=== PATIENT | male | born 1950 | race Caucasian/White ===

== ENCOUNTER 2020-11-24 12:54 | Outpatient (REF) | payer MEDICARE, SELFPAY ==
--- NOTE | 2020-11-24 16:20 | MHC.AU.AHA ---
Adult Audiological Evaluation Date of Visit: 11/24/20 Reason for Appointment: Audiological evaluation to monitor the status of Mr. Rodgers's hearing loss. He has a history of bilateral, high-frequency, sensorineural hearing loss and hearing aid use. He denies any significant changes to his hearing or medical history. [place] [facility] [place] Normal hearing from 250-2000 Hz, sloping to a mild to moderate sensorineural hearing loss from 8301-7401 Hz bilaterally. Ear History: Bothersome Tinnitus/Ringing/Noises in Ears: Both Ears Medical History: Medical History: Unremarkable Medical History Hearing Instrument History- Right Ear: Cpa Tax: Complete Network Technology Model: [employer]90-M DevonWayE Serial Number: [id number] Battery Size: 312 Repair Warranty: 01/22/2019 Loss and Damage Warranty: 01/22/2019 Dispensed By: [facility] Date of Fittin11/16/2015 Hearing Instrument History- Left Ear: Cpa Tax: Complete Network Technology Model: [employer]90-M DevonWayE Serial Number: [id number] Battery Size: 312 Warranty: 01/22/2019 Loss and Damage Warranty: 01/22/2019 Dispensed By: [facility] Date of Fittin11/16/2015 Otoscopy: Right Ear: Unremarkable Left Ear: Unremarkable Tympanometry: Tympanometry performed due to: To assess integrity of the middle ear system Right Ear: Normal Middle Ear System (Type A) Left Ear: Normal Middle Ear System (Type A) Hearing Evaluation: Transducer(s) Used: Insert Earphones, Bone Conduction Method: Conventional Audiometry Stimuli Used: Pure Tones Right Ear: Description of Hearing: Normal hearing from 250-2000 Hz, sloping to a mild to moderate sensorineural hearing loss from 0990-6275 Hz. Left Ear: Description of Hearing: Normal hearing from 250-2000 Hz, sloping to a mild to moderate sensorineural hearing loss from 0984-2824 Hz. Speech Recognition Threshold (SRT): Method Used: Monitored Live Voice Stimuli Used: Spondee Words Right Ear: 15 dBHL Left Ear: 10 dBHL Word Discrimination: Method: Recorded Lists Word Lists Used: NU-6 Right Ear: 92% at 55 dBHL Left Ear: 100% at 55 dBHL Comparison: Compared to the most recent evaluation: Hearing is stable. Recommendations: Audiological re-evaluation in one year. Mr. Rodgers notes that he is interested in trying new hearing aids with updated technology. Briefly discussed hearing aid options. He will consider his options and will return for a hearing aid evaluation should he decide to pursue new hearing aids through our clinic. Diagnosis: Primary Diagnosis: H90.3 Bilateral Sensorineural Hearing Loss Services Performed: Comprehensive Audiological Evaluation (CPT 20415) Tympanometry (CPT 96125) Signature: Provider: Kimberly Varma, CCC-A
== END 2020-11-24 12:55 | disposition home or self-care (01) ==
LOC: HO.SH 12:54
PROVIDERS: Visit Provider Internal Medicine
DX: H90.3 Sensorineural hearing loss, bilateral (principal)
CPT/HCPCS: 92557; 92567

== ENCOUNTER 2020-12-25 13:57 | Outpatient (REF) | payer SELFPAY ==
--- NOTE | 2020-12-25 14:38 | MHC.AU.HAS ---
Hearing Aid Evaluation Date of Visit: 12/25/20 Historical Information: Description of Hearing: Normal 250-2000 Hz, sloping to moderate sensorineural hearing loss Current personal amplification information, if applicable: A pair of Phonak Bolero V90M w/slim tubes, dispensed 11/16/2015 Summary: Patient is interested in updating his hearing instruments. He was last seen for an audiological evaluation on 11/24/2020. He is interested in a product similar to his current model, but with Bluetooth capabilities. He would like to stay with disposable batteries. Hearing Aid Prescription: Based on the individual?s shared listening needs, communication environments, dexterity, desire for connectivity, and personal preferences, the following prescription for amplification has been made: Right ear: Spray Booth Operator: Phonak Model: Audeo P90-312 Battery Size: 312 Color: Silver Finishing Room Supervisor: 1M Left ear: Spray Booth Operator: Phonak Model: Audeo P90-312 Battery Size: 312 Color: Silver Finishing Room Supervisor: 1M Accessories/Assistive Technology Recommended: TV Connector (through Phonak promo code) Action Taken/Action Needed: Hearing Fitting to be scheduled when materials arrive Patient paid $350 deposit today. He would like an itemized receipt at the fitting to submit to his insurance. Primary Diagnosis: H90.3 Bilateral Sensorineural Hearing Loss Signature: Provider: Kimberly Ward, JUAN-A
== END 2020-12-25 13:58 | disposition home or self-care (01) ==
LOC: HO.HAP 13:57
PROVIDERS: Visit Provider Internal Medicine
DX: Z46.1 Encounter for fitting and adjustment of hearing aid (principal); H90.3 Sensorineural hearing loss, bilateral
CPT/HCPCS: 92591

== ENCOUNTER 2021-01-13 15:05 | Outpatient (REF) | payer SELFPAY ==
--- NOTE | 2021-01-14 09:01 | MHC.AU.HFA ---
Hearing Instrument Fitting- Adult- Binaural Date of Visit: 01/13/21 Hearing Instruments Dispensed: Right Ear: Order Packer: Phonak Model: Audeo P90-312 Serial Number: [id number] Repair Warranty: 03/30/2024 Loss and Damage Warranty: 03/30/2024 Battery Size: 312 Color: Silver Section Beamer: 1M Type of Dome: Small Open Type of Wax Guard: CeruShield Left Ear: Order Packer: Phonak Model: Audeo P90-312 Serial Number: [id number] Repair Warranty: 03/30/2024 Loss and Damage Warranty: 03/30/2024 Battery Size: 312 Color: Silver Section Beamer: 1M Type of Dome: Small Open Type of Wax Guard: CeruShield Accessories/Assistive Technology: TV Connector #[id number] Warranty 04/09/2022 Summary of Fitting: Patient arrived for hearing aid fitting. Feedback occupational therapy manager was run. Verifit was performed and levels adjusted to better reach targets. Patient was pleased with the sound of the instruments. He felt they sounded more clear than his previous model. Hearing aid care and maintenance were discussed and demonstrated. Hearing aids were paired to his phone. Attempted to download the jessica, but patient did not remember his password for the jessica store. He will download it when he gets home. Recommendations: Patient is an experienced hearing aid user, and will call for follow-up if needed. Paid remaining balance of $4850 today. Gave patient itemized receipt for his insurance. Diagnosis Code(s): Primary Diagnosis: H90.3 Bilateral Sensorineural Hearing Loss Signature: Provider: Kimberly Ward, JUAN-A
== END 2021-01-13 15:06 | disposition home or self-care (01) ==
LOC: HO.HAP 15:05
PROVIDERS: Visit Provider Internal Medicine
DX: Z46.1 Encounter for fitting and adjustment of hearing aid (principal); H90.3 Sensorineural hearing loss, bilateral
CPT/HCPCS: V5261

== ENCOUNTER 2022-06-29 11:21 | Outpatient (REF) | payer MEDICARE, SELFPAY ==
--- NOTE | 2022-06-29 13:13 | MHC.AU.HFU ---
Hearing Instrument Follow-Up- Binaural Date of Visit: 06/29/22 Right Ear: Phonak Yelitzaeo P90-312 SN: [id number] Color: Silver Navarrete Repair Warranty: 03/30/2024 Loss and Damage Warranty: 03/30/2024 Battery Size: 312 Bronzer: 1M Type of Mold: Small open dome Type of Wax Guard: CeruShield Dispensed By: [facility] Date of Fittin01/13/2021 Left Ear: Phonak Yelitzaeo P90-312 SN: [id number] Color: Silver Navarrete Repair Warranty: 03/30/2024 Loss and Damage Warranty: 03/30/2024 Battery Size: 312 Bronzer: 1M Type of Mold: Small open dome Type of Wax Guard: CeruShield Dispensed By: [facility] Date of Fittin01/13/2021 Follow-Up Summary: David returned for routine hearing aid maintenance. His hearing aids were cleaned, microphones were vacuumed, and domes, wax guards, and retention tails were replaced. A listening check demonstrated that the hearing aids are in good working order. David reported that overall he is doing well with his hearing aids and is satisfied with the sound quality and comfort. Recommendations: Hearing instrument maintenance in 6 months, or sooner if needed. Please contact our clinic with any questions or concerns. Diagnosis Code(s): Primary Diagnosis: H90.3 Bilateral Sensorineural Hearing Loss Signature: Provider: Garret Arora, [facility]A
== END 2022-06-29 11:22 | disposition home or self-care (01) ==
LOC: HO.SH 11:21
PROVIDERS: Visit Provider Internal Medicine
DX: Z01.118 Encounter for examination of ears and hearing with other abnormal findings (principal); H90.3 Sensorineural hearing loss, bilateral
CPT/HCPCS: 92557

== ENCOUNTER 2022-12-17 15:29 | Emergency (ER) | payer MEDICARE, SELFPAY ==
--- NOTE | ~2022-12-17 | XR_ITS ---
EXAMINATION: XR FINGER, LEFT CLINICAL INFORMATION: Left index finger laceration. COMPARISON: None available. TECHNIQUE: Three views of the left index finger. FINDINGS: Soft tissue laceration/defect extends down to the tuft of the second distal phalanx. There is loss of bone along the plantar aspect of the tuft best appreciated on the lateral view. XR/XR finger LT min 2V IMPRESSION: Soft tissue laceration extends down to the tuft of the second distal phalanx. There is loss of bone along the plantar aspect of the tuft.
[2022-12-17 15:35] VITALS: BP 106/67; PULSE 44; RESP 20; TEMP 36.7; O2SAT 97; BMI 28.8
--- NOTE | 2022-12-17 15:50 | ED.EXTPRO ---
HPI - Extremity Problem General Chief complaint: Extremity Injury, Upper <JOÃO Schmitz - Last Filed: 12/17/22 15:53> Stated complaint: finger cut <JOÃO Schmitz - Last Filed: 12/17/22 15:53> Time Seen by Provider: 12/17/22 17:30 <JOÃO Schmitz - Last Filed: 12/17/22 15:53> Source: patient, family, RN notes reviewed and old records reviewed <MOE Barajas-BC - Last Filed: 12/18/22 01:33> Mode of arrival: ambulatory <MOE Barajas-BC - Last Filed: 12/18/22 01:33> Limitations: no limitations <MOE Barajas-BC - Last Filed: 12/18/22 01:33> History of Present Illness MD Complaint: other (Left index finger laceration) <MOE Barajas-BC - Last Filed: 12/18/22 01:33> Onset (ago): minute(s) <MOE Barajas-BC - Last Filed: 12/18/22 01:33> Pain Consistency: intermittent <MOE Barajas-BC - Last Filed: 12/18/22 01:33> Location: left, upper extremity and other (Finger) <MOE Barajas-BC - Last Filed: 12/18/22 01:33> Quality: aching <MOE Barajas-BC - Last Filed: 12/18/22 01:33> Radiation: none <MOE Barajas-BC - Last Filed: 12/18/22 01:33> Relieving factors: elevation <MOE Barajas-BC - Last Filed: 12/18/22 01:33> Related Data Home medications: Previous Rx's Medication Instructions Recorded doxycycline monohydrate 100 mg 100 mg PO BID #20 caps 12/17/22 capsule <JOÃO Schmitz - Last Filed: 12/17/22 15:53> Allergies/Adverse reactions: Allergies Allergy/AdvReac Type Severity Reaction Status Date / Time Penicillins Allergy Unknown UNKNOWN Unverified 05/07/20 17:28 <JOÃO Schmitz - Last Filed: 12/17/22 15:53> Review of Systems Constitutional: Constitutional: Denies weight gain and Denies weight loss <Marilynnsowmya Srinivasanalvaro THEATRICAL VARIETY AGENT-BC - Last Filed: 12/18/22 01:33> ENT: Reports system reviewed and no additional complaints, except as documented, Denies dysphagia and Denies odynophagia <Marilynn Subhash Erica THEATRICAL VARIETY AGENT-BC - Last Filed: 12/18/22 01:33> Cardiovascular: Cardiovascular: Reports no additional cardiovascular complaints <Marilynn Subhash Srinivasano, THEATRICAL VARIETY AGENT-BC - Last Filed: 12/18/22 01:33> Respiratory: Respiratory: Reports no additional respiratory complaints <Marilynn D Erica, THEATRICAL VARIETY AGENT-BC - Last Filed: 12/18/22 01:33> Gastrointestinal: Gastrointestinal: Denies abdominal pain, Denies belching, Denies melena, Denies bloating, Denies change in bowel habits, Denies dysphagia, Denies excessive flatus, Denies dyspepsia, Denies heartburn, Denies diarrhea, Denies loose stools, Denies nausea, Denies odynophagia and Denies vomiting <Marilynn Subhash Srinivasano, THEATRICAL VARIETY AGENT-BC - Last Filed: 12/18/22 01:33> Genitourinary: Genitourinary: Reports no additional male genitourinary complaints <Marilynn Subhash Maldonado, THEATRICAL VARIETY AGENT-BC - Last Filed: 12/18/22 01:33> Musculoskeletal: Musculoskeletal: Reports no additional musculoskeletal complaints <Marilynn Subhash Maldonado, THEATRICAL VARIETY AGENT-BC - Last Filed: 12/18/22 01:33> Integumentary/Breasts: Skin/Breast: Reports wounds (Laceration of left index finger) <Marilynn Subhash Maldonado, THEATRICAL VARIETY AGENT-BC - Last Filed: 12/18/22 01:33> [facility] Social History Social History: Social History Advance Directives: No Advance Directives Information Provided: No <JOÃO Schmitz - Last Filed: 12/17/22 15:53> Physical Exam Vital Signs: Vital Signs: Last Vital Signs Temp 97.9 F 12/17/22 17:10 Pulse 52 12/17/22 17:10 Resp 16 12/17/22 17:10 BP 136/55 L 12/17/22 17:10 Pulse Ox 96 12/17/22 17:10 O2 Del Method Room Air 12/17/22 17:10 BMI result Body Mass Index 28.8 <Laura Castelan PA - Last Filed: 12/17/22 15:53> Vital Signs: Last Vital Signs Temp 97.9 F 12/17/22 17:10 Pulse 52 12/17/22 17:10 Resp 16 12/17/22 17:10 BP 136/55 L 12/17/22 17:10 Pulse Ox 96 12/17/22 17:10 O2 Del Method Room Air 12/17/22 17:10 BMI result Body Mass Index 28.8 <Marilynn Maldonado THEATRICAL VARIETY AGENT-BC - Last Filed: 12/18/22 01:33> Const: General: healthy appearing, no acute distress and well developed <Marilynn Maldonado THEATRICAL VARIETY AGENT-BC - Last Filed: 12/18/22 01:33> Nutritional Appearance: well nourished <Marilynn Maldonado THEATRICAL VARIETY AGENT-BC - Last Filed: 12/18/22 01:33> Orientation/consciousness: patient oriented x3 <Marilynn Maldonado THEATRICAL VARIETY AGENT-BC - Last Filed: 12/18/22 01:33> HEENT: Head: Yes normal to inspection, Yes normocephalic and Yes atraumatic <Marilynn Maldonado THEATRICAL VARIETY AGENT-BC - Last Filed: 12/18/22 01:33> Face and sinus: Yes normal facial exam <Marilynn Maldonado THEATRICAL VARIETY AGENT-BC - Last Filed: 12/18/22 01:33> Mouth: Normal oral and palatal mucosa present <Marilynn Maldonado THEATRICAL VARIETY AGENT-BC - Last Filed: 12/18/22 01:33> Throat: Yes posterior oropharynx normal, Yes tonsils normal and Yes uvula midline <Marilynn Maldonado THEATRICAL VARIETY AGENT-BC - Last Filed: 12/18/22 01:33> Eyes: General: appearance normal, both eyes and all related structures <Marilynn Maldonado THEATRICAL VARIETY AGENT-BC - Last Filed: 12/18/22 01:33> Neck: Neck: Yes normal visual inspection, Yes full ROM and Yes trachea midline <Marilynn Subhash Maldonado THEATRICAL VARIETY AGENT-BC - Last Filed: 12/18/22 01:33> Thyroid: Thyroid normal <Marilynn Subhash Srinivasano THEATRICAL VARIETY AGENT-BC - Last Filed: 12/18/22 01:33> Resp: Effort & Inspection: normal respiratory effort, able to speak in complete sentences, no tracheal deviation and symmetric chest movement <Marilynn Subhash Srinivasano THEATRICAL VARIETY AGENT-BC - Last Filed: 12/18/22 01:33> Auscultation: clear to auscultation bilaterally <Marilynn Subhash Srinivasano, THEATRICAL VARIETY AGENT-BC - Last Filed: 12/18/22 01:33> Cardio: Rate: regular rate <Marilynn Subhash Maldonado THEATRICAL VARIETY AGENT-BC - Last Filed: 12/18/22 01:33> : General: Yes no CVA tenderness <Marilynnsowmya Maldonado, THEATRICAL VARIETY AGENT-BC - Last Filed: 12/18/22 01:33> Back/Spine/Pelvis: Back: no CVA tenderness <Marilynn Subhash Maldonado, THEATRICAL VARIETY AGENT-BC - Last Filed: 12/18/22 01:33> Skin: General skin exam: elasticity normal, turgor normal and dry skin <Marilynn Maldonado THEATRICAL VARIETY AGENT-BC - Last Filed: 12/18/22 01:33> Neuro: General: patient oriented x3 <Marilynn Maldonado THEATRICAL VARIETY AGENT-BC - Last Filed: 12/18/22 01:33> Psych: Appearance: grossly normal <Marilynn Maldonado THEATRICAL VARIETY AGENT-BC - Last Filed: 12/18/22 01:33> Mental Status: mental status grossly normal <Marilynn Subhash Maldonado, THEATRICAL VARIETY AGENT-BC - Last Filed: 12/18/22 01:33> Speech and movement: Normal speech and movement present <Marilynn Sbuhash Maldonado, THEATRICAL VARIETY AGENT-BC - Last Filed: 12/18/22 01:33> Affect: normal affect <Marilynn Subhash Srinivasano, THEATRICAL VARIETY AGENT-BC - Last Filed: 12/18/22 01:33> Attitude: cooperative <Marilynn Subhash Srinivasano, THEATRICAL VARIETY AGENT-BC - Last Filed: 12/18/22 01:33> Thought process: Normal thought process present <Marilynn D Erica, THEATRICAL VARIETY AGENT-BRIONNA - Last Filed: 12/18/22 01:33> Course Course Course Narrative: This is an RME: Additional HPI, ROS, PE not included below will be deferred to primary provider. 72-year-old male presenting to the emergency department today with left index finger laceration on-table some which occurred 30 minutes prior to arrival. Tip of left index finger is completely avulsed. Bleeding is controlled. Patient bradycardiac at 44bpm, pt reports this is typical of him. Needs wound repair. Able to flex and extend left index finger. Pt stable to return back to the waiting room until treatment room becomes available. Plan: Tdap, xray <JOÃO Schmitz - Last Filed: 12/17/22 15:53> This is an RME: Additional HPI, ROS, PE not included below will be deferred to primary provider. 72-year-old male presenting to the emergency department today with left index finger laceration on-table some which occurred 30 minutes prior to arrival. Tip of left index finger is completely avulsed. Bleeding is controlled. Patient bradycardiac at 44bpm, pt reports this is typical of him. Needs wound repair. Able to flex and extend left index finger. Pt stable to return back to the waiting room until treatment room becomes available. Plan: Tdap, xray <ELEANOR Barajas - Last Filed: 12/18/22 01:33> Reevaluation(s) Reevaluation #1: X-ray reviewed, dressing to left index finger. First dose of antibiotic in the ER. Tetanus vaccine. Patient will be sent to follow-up with orthopedic surgeon. X-ray results sent to on-call orthopedic PA <ELEANOR Barajas - Last Filed: 12/18/22 01:33> Medications Administered Discontinued Medications Generic Name Dose Route Start Last Admin Trade Name Freq PRN Reason Stop Dose Admin Diphtheria/Tetanus/Acell Pertussis 0.5 ml 12/17/22 15:43 12/17/22 18:19 Diphth,Pertus(Acell),Tet Adult 0.5 Ml Syringe IM 12/17/22 15:44 0.5 ml .ONCE ONE Administration Doxycycline Monohydrate 100 mg 12/17/22 17:49 12/17/22 18:19 Doxycycline Monohydrate 100 Mg Capsule PO 12/17/22 17:50 100 mg ONCE ONE Administration <JOÃO Schmitz Last Filed: 12/17/22 15:53> Medications Administered Discontinued Medications Generic Name Dose Route Start Last Admin Trade Name Fiona PRN Reason Stop Dose Admin Diphtheria/Tetanus/Acell Pertussis 0.5 ml 12/17/22 15:43 12/17/22 18:19 Diphth,Pertus(Acell),Tet Adult 0.5 Ml Syringe IM 12/17/22 15:44 0.5 ml .ONCE ONE Administration Doxycycline Monohydrate 100 mg 12/17/22 17:49 12/17/22 18:19 Doxycycline Monohydrate 100 Mg Capsule PO 12/17/22 17:50 100 mg ONCE ONE Administration <ELEANOR Barajas - Last Filed: 12/18/22 01:33> Medical Decision Making Medical Decision Making MDM Narrative: Triage note 72-year-old male presenting to the emergency department today with left index finger laceration on-table some which occurred 30 minutes prior to arrival. Tip of left index finger is completely avulsed. Bleeding is controlled. Patient bradycardiac at 44bpm, pt reports this is typical of him. Needs wound repair. Able to flex and extend left index finger. Pt stable to return back to the waiting room until treatment room becomes available. Plan: Tdap, xray Soft tissue laceration extends down to the tuft of the 2nd distal phalanx, there is loss of bone along the plantar aspect of the tuft. Results of the x-ray sent to on-call orthopedic surgeon. Will send patient home on antibiotics, 1st dose given here. Bleeding controlled. xeroform dressing applied <ELEANOR Barajas - Last Filed: 12/18/22 01:33> Discharge Plan Discharge Clinical Impression: Avulsion fracture of distal phalanx of finger <JOÃO Schmitz Last Filed: 12/17/22 15:53> Patient Disposition: Home, Self-Care <JOÃO Schmitz Last Filed: 12/17/22 15:53> Instructions: Laceration (ED), Skin Avulsion (ED) <JOÃO Schmitz Last Filed: 12/17/22 15:53> Additional Instructions: You were seen here in the emergency department left index finger laceration. X-ray showed that part of your bone has been also caught. You will need to follow-up with orthopedic surgeon for repair. You will be given 1st dose of antibiotics in the emergency department as well as tetanus vaccine. Please call orthopedics office on Monday: [phone]. Please keep your hand up to prevent increased bleeding. Make sure that you keep dressing on, clean and dry <JOÃO Schmitz - Last Filed: 12/17/22 15:53> Prescriptions: New doxycycline monohydrate 100 mg capsule 100 mg PO BID Qty: 20 0RF <JOÃO Schmitz Last Filed: 12/17/22 15:53> Referrals: Karmen Martinez PA-C [Physician Landscape Account Manager] - (Soft tissue laceration extends down to the tuft of the 2nd distal phalanx, there is loss of bone along the plantar aspect of the tuft) Quirino Huang MD [Primary Care Provider] - <JOÃO Schmitz - Last Filed: 12/17/22 15:53> Interventions: ED Discharge Assessment Last Done: 12/17/22 18:58 <JOÃO Schmitz Last Filed: 12/17/22 15:53> Discharge Date/Time: 12/17/22 18:58 <JOÃO Schmitz Last Filed: 12/17/22 15:53>
[2022-12-17 17:10] VITALS: BP 136/55; PULSE 52; RESP 16; TEMP 36.6; O2SAT 96
[2022-12-17] MEDS: Diphth,Pertus(ACell),Tet Adult 0.5 ML SYRINGE IM (18:19)
[2022-12-17] MEDS: Doxycycline Monohydrate 100 MG CAPSULE PO (18:19)
== END 2022-12-17 18:58 | disposition home or self-care (01) ==
PROVIDERS: Emergency Provider Internal Medicine; PCP Internal Medicine
DX: S62.631B Displaced fracture of distal phalanx of left index finger, initial encounter for open fracture (principal); W31.2XXA Contact with powered woodworking and forming machines, initial encounter; Y93.9 Activity, unspecified; R00.1 Bradycardia, unspecified; Y92.019 Unspecified place in single-family (private) house as the place of occurrence of the external cause; Y99.9 Unspecified external cause status
CPT/HCPCS: 73140; 90471; 90715; 99282; 99284

== ENCOUNTER → 2022-12-20 10:24 | Outpatient (BNVA) | payer MEDICARE, SELFPAY | PROVIDERS: PCP Internal Medicine; Visit Provider Physician Assistant | DX: S68.111A Complete traumatic metacarpophalangeal amputation of left index finger, initial encounter (principal) | CPT/HCPCS: 99202 ==

== ENCOUNTER → 2022-12-21 10:07 | Outpatient (BNVA) | payer MEDICARE, SELFPAY | PROVIDERS: PCP Internal Medicine; Visit Provider Orthopaedic Surgery | DX: S68.111A Complete traumatic metacarpophalangeal amputation of left index finger, initial encounter (principal) | CPT/HCPCS: 99212 ==

== ENCOUNTER 2024-04-17 14:23 | Outpatient (REF) | payer MEDICARE, SELFPAY | END 2024-04-17 14:24 | disposition home or self-care (01) | LOC: HO.HAP 14:23 | PROVIDERS: Visit Provider Internal Medicine | DX: Z13.89 Encounter for screening for other disorder (principal) ==